=== PATIENT | male | born 1955 | race Caucasian/White ===

== ENCOUNTER 2024-03-25 08:19 | Emergency (ER) | payer MEDICARE, OTHER, SELFPAY ==
[2024-03-25] VITALS (10 sets, daily range): BP systolic 157–203; BP diastolic 79–112; PULSE 51–67; RESP 18; O2SAT 94–97; BMI 34.7
--- NOTE | 2024-03-25 08:32 | DI.RAD.S_ITS ---
PROCEDURE: XR CHEST 1V INDICATIONS: chest pain TECHNIQUE: One view of the chest was acquired. COMPARISON: None. FINDINGS: Surgical changes and devices: None. Lungs and pleura: Mild pulmonary vascular congestion is seen. No focal infiltrate. No pleural effusions or pneumothorax. Mediastinum: Mediastinal contours appear normal. Heart size is enlarged. Bones and chest wall: No suspicious bony lesions. Overlying soft tissues appear unremarkable. IMPRESSION: Cardiomegaly and mild congestion. No focal infiltrate, pleural effusion or pneumothorax. Dictated by: Titus Palacio M.D. on 03/25/2024 at 9:21 Approved by: Titus Palacio M.D. on 03/25/2024 at 9:22
--- NOTE | 2024-03-25 08:34 | EKG_ITS ---
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
[2024-03-25] MEDS: ASPIRIN 81 MG CHEW TAB 324 MG PO (08:42)
[2024-03-25 08:45] LABS: Add Manual Diff / Slide Review NO; Basophils Absolute Auto 0 /uL (0-100); Basophils Percent Auto 0.8 % (0-2); Eosinophils Absolute Auto 100 /uL (0-450); Eosinophils Percent Auto 2.2 % (2-4); Lymphocytes Absolute Auto 2600 /uL (1100-4500); Lymphocytes Percent Auto 45.6 % (25-40); Mean Corpuscular HGB Conc 33.9 % (30-36); Mean Corpuscular Hemoglobin 32.3 PG (26-34); Mean Corpuscular Volume 95.4 fL (80-100); Monocytes Absolute Auto 700 /uL (0-900); Monocytes Percent Auto 12.7 % (3-14); Neutrophils Absolute Auto 2200 /uL (1500-7000); Neutrophils Percent Auto 38.7 % (50-75); Platelet Count 156 X10^3/uL (150-400); Red Blood Cell Count 4.93 X10^6/uL (4.5-5.9); Red Cell Distribution Width 13.5 % (11.6-14.8); White Blood Cell Count 5.7 X10^3/uL (4.5-11.0)
[2024-03-25 09:21] LABS: Prothrombin Time 10.9 SECONDS (9.4-12.5)
[2024-03-25 09:24] LABS: PTT Partial Thromboplastin Tim 34 SECONDS (25.1-36.5)
--- NOTE | 2024-03-25 09:31 | ED_ITS ---
HPI - Chest Pain General Chief Complaint: Chest Pain Stated Complaint: CHEST PAIN ABD pain, Time Seen by Provider: 03/25/24 09:31 Source: patient Mode of arrival: Family Vehicle Limitations: no limitations History of Present Illness HPI narrative: Patient is a 68-year-old male not taking any medications has been on and off losartan presenting today with chest pain. He reports he was out fishing for about 3 hours 4 days ago when he got done in the car ride he had some chest heaviness on the left side really nonradiating no significant shortness of breath. He got out walked around went away. He was fine for the next 2 days and then this morning woke up again with some chest heaviness. No significant shortness of breath he does have a mild headache. He feels just really fatigued over the last couple of days to fever or chills. No abdominal pain nausea or vomiting. No other symptoms no known history of coronary artery disease no family history and he has a nonsmoker he says that he was on losartan in the beginning of the ear but was having some side effects he cut back to half ultimately he says he did not eat it in his blood pressure normalized so he has not taking. He denies any dizziness weakness numbness or tingling. Related Data Allergies Allergy/AdvReac Type Severity Reaction Status Date / Time No Known Drug Allergies Allergy Verified 03/25/24 08:35 Patient History Social History Smoking Status: Never smoker Smoking Status: Never smoker alcohol intake frequency: 0-2 drinks per day Substance Use Type: does not use Exam Initial Vital Signs Initial Vital Signs: Vital Signs Pulse Rate 67 03/25/24 08:32 Respiratory Rate 18 03/25/24 08:32 Blood Pressure 203/112 H 03/25/24 08:32 Pulse Oximetry 97 03/25/24 08:32 Oxygen Delivery Method Room Air 03/25/24 08:32 GENERAL: Alert pleasant and in no acute distress. HEENT: Head atraumatic,EOMI, pupils reactive, face symmetric, moist mucous membranes CARDIOVASCULAR: Regular rate and rhythm without murmurs, rubs or gallops. RESPIRATORY: Breath sounds equal bilaterally, no wheezes rales or rhonchi. ABDOMEN: Soft, nontender. Normoactive bowel sounds all 4 quadrants. No guarding or rebound. EXTREMITIES: Normal range of motion, no clubbing or edema. Neurovascularly intact NEUROLOGICAL: Alert and oriented x4.Normal gait and speech SKIN: Warm, dry, no laceration, no petechiae, no rashes or lesions. Scores HEART Score Heart Score history: Slightly Suspicious Heart Score EKG: Normal Heart Score Age: > or = 65 years old Heart Score risk factors: 1-2 risk factors Heart Score troponin: < or = to normal limit Heart Score Total: 3 Course Orders Ordered: ED Orders 03/25/24 11:05 Trop I [Troponin I] Stat EKG-12 Lead Stat Discontinued Medications Aspirin (Aspirin 81 Mg Chew Tab) 324 mg PO NOW ONE Stop: 03/25/24 08:33 Last Admin: 03/25/24 08:42 Dose: 324 mg Documented By: Sodium Chloride (Normal Saline 0.9%) 1,000 mls @ 1,000 mls/hr IV BOLUS ONE Stop: 03/25/24 10:43 Last Infusion: 03/25/24 10:54 Dose: Infused Documented By: Admin: 03/25/24 09:51 Dose: 1,000 mls/hr Documented By: Vital Signs Vital signs: Vital Signs - 8 hr 03/25/24 10:30 03/25/24 10:30 03/25/24 11:00 Pulse Rate 52 L Blood Pressure 157/79 H 170/87 H Pulse Oximetry 94 03/25/24 11:00 03/25/24 11:30 03/25/24 11:32 Pulse Rate 51 L 52 L Blood Pressure 178/85 H Pulse Oximetry 95 97 03/25/24 11:32 Pulse Rate 53 L Blood Pressure Pulse Oximetry 96 MDM - Chest Pain Lab Data 03/25/24 08:34 03/25/24 09:05 Labs: Lab Results 03/25/24 03/25/24 03/25/24 Range/Units 08:34 09:05 11:05 WBC 5.7 (4.5-11.0) X10^3/uL RBC 4.93 (4.5-5.9) X10^6/uL Hgb 16.0 (13.5-17.5) g/dL Hct 47.0 (41-53) % MCV 95.4 (80-100) fL MCH 32.3 (26-34) PG MCHC 33.9 (30-36) % RDW 13.5 (11.6-14.8) % Plt Count 156 (150-400) X10^3/uL Neut % (Auto) 38.7 L (50-75) % Lymph % (Auto) 45.6 H (25-40) % [place] % (Auto) 12.7 (3-14) % Eos % (Auto) 2.2 (2-4) % Baso % (Auto) 0.8 (0-2) % Neut # (Auto) 2200 (5472-6836) /uL Lymph # (Auto) 2600 (4261-7902) /uL [place] # (Auto) 700 (0-900) /uL Eos # (Auto) 100 (0-450) /uL Baso # (Auto) 0 (0-100) /uL PT 10.9 (9.4-12.5) SECONDS INR 1.0 (0.9-1.3) APTT 34 (25.1-36.5) SECONDS D-Dimer 226 (<500) ng/ml Sodium 140 (137-145) mmol/L Potassium 3.4 (3.4-5.1) mmol/L Chloride 108 H (98-107) mmol/L Carbon Dioxide 25 (22-32) mmol/L BUN 17 (9-20) mg/dL Creatinine 0.81 (0.66-1.25) mg/dL Estimated GFR > 60 (>60) mL/min BUN/Creatinine Ratio 21.0 (6-22) Glucose 140 H (80-110) mg/dL Calcium 8.3 L (8.4-10.2) mg/dL Magnesium 2.2 (1.6-2.3) mg/dL Total Bilirubin 0.8 (0.2-1.3) mg/dL AST 35 (17-59) IU/L ALT 56 H (<50) IU/L Alkaline Phosphatase 75 (38-126) U/L Total Creatine Kinase 85 (55-170) U/L Troponin I < 0.012 < 0.012 (0.01-0.034) ng/mL NT-Pro-B Natriuret Pep 45 (<125) pg/mL Total Protein 6.6 (6.3-8.2) g/dL Albumin 3.9 (3.5-5.0) g/dL Globulin 2.7 (1.7-4.1) g/dL Albumin/Globulin Ratio 1.4 (1.0-2.8) Lipase 83 (23-300) U/L Imaging Data Chest x-ray: Radiologist's Impression: PROCEDURE: XR CHEST 1V INDICATIONS: chest pain TECHNIQUE: One view of the chest was acquired. COMPARISON: None. FINDINGS: Surgical changes and devices: None. Lungs and pleura: Mild pulmonary vascular congestion is seen. No focal infiltrate. No pleural effusions or pneumothorax. Mediastinum: Mediastinal contours appear normal. Heart size is enlarged. Bones and chest wall: No suspicious bony lesions. Overlying soft tissues appear unremarkable. IMPRESSION: Cardiomegaly and mild congestion. No focal infiltrate, pleural effusion or pneumothorax. Dictated by: Titus Palacio M.D. on 03/25/2024 at 9:21 ECG Data Attestation: I personally reviewed and interpreted this ECG as follows: Interpretation: Normal sinus rhythm rate 61 [place] interval 160 QRS 144 QTC 430 right bundle-branch block noted no previous EKGs he have some T-wave inversion in V5 and V6 without ST elevation EKG 2. Sinus rhythm pre 53 [place] interval 182 QRS 146 QTC 429 persistent right bundle branch he does have persistent ST changes nothing new MDM Narrative Medical decision making narrative: Patient is a 68-year-old male history of hypertension not currently taking medications presenting today with chest discomfort off and on for the last 4 days. Started after he was out on a boat in the hot weather fishing he then did not have any sort of pain for 2 days and then it started again today. It actually seems to get better with movement does not really change with rest. He remains chest pain-free in the emergency department. He has a heart score of 3. [place] is currently [place] from [place] but will be here until May Blood work has been reviewed WBC 5.7 hemoglobin 16.0 hematocrit 47.0 platelet 156, D-dimer is 226, sodium 140 potassium 3.4 chloride 108 carbon dioxide 25 BUN 17 creatinine troponin negative x2, bilirubin 0.8 AST 35 ALT 56 lipase 83 Chest x-ray reviewed mild cardiomegaly with mild congestion without infiltrate EKGs reviewed right bundle-branch block there is some T-wave inversion in V5 and V6 patient is unaware of any sort of right bundle-branch block Long discussion with patient about requiring further workup including stress test and echocardiogram. D-dimer negative low suspicion for pulmonary embolism. Patient and both understand need for further workup can be done as an outpatient they both understand that you must return to the ED if having worsening symptoms Differential diagnosis acute coronary syndrome, pulmonary embolism, arrhythmia, pneumonia Discharge Plan Departure Patient Disposition: Home Clinical Impression: Atypical chest pain Instructions: DI for Atypical Chest Pain Activity Restrictions/Additional Instructions: *You have been diagnosed with atypical chest pain *What to do: At this time I do recommend that he follow up with primary care provider in regards to further cardiac testing such as stress test echocardiogram. While you are here you may need to establish care with a PCP *Continue to take medications as directed *Follow up with your primary care provider in 2-3 days or call [phone] *Return to ER if you should have increasing chest pain shortness of breath or any new, worsening or concerning symptoms Stand Alone Forms: Patient Portal/API
[2024-03-25 09:38] LABS: Alanine Aminotransferase 56 IU/L (<50); Albumin 3.9 g/dL (3.5-5.0); Albumin Globulin Ratio 1.4 (1.0-2.8); Alkaline Phosphatase 75 U/L (38-126); Aspartate Aminotransferase 35 IU/L (17-59); Bilirubin Total 0.8 mg/dL (0.2-1.3); Blood Urea Nitrogen 17 mg/dL (9-20); Calcium 8.3 mg/dL (8.4-10.2); Carbon Dioxide 25 mmol/L (22-32); Chloride 108 mmol/L (98-107); Creatine Kinase 85 U/L (55-170); Estimated Glomerular Filt Rate > 60 mL/min (>60); Globulin 2.7 g/dL (1.7-4.1); Glucose 140 mg/dL (80-110); HEMOLYSIS < 15 (0-50); Lipase 83 U/L (23-300); Magnesium 2.2 mg/dL (1.6-2.3); Potassium 3.4 mmol/L (3.4-5.1); Sodium 140 mmol/L (137-145); Total Protein 6.6 g/dL (6.3-8.2)
[2024-03-25 09:49] LABS: NT-proBNP (BNP-Adult 18+) 45 pg/mL (<125); Troponin I < 0.012 ng/mL (0.01-0.034)
[2024-03-25] MEDS: SODIUM CHLORIDE 0.9% 1,000 ML 1000 ML IV (09:51)
[2024-03-25 09:58] LABS: D Dimer 226 ng/ml (<500)
--- NOTE | 2024-03-25 11:10 | EKG_ITS ---
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
[2024-03-25 11:36] LABS: Troponin I < 0.012 ng/mL (0.01-0.034)
== END 2024-03-25 11:48 | disposition home or self-care (01) ==
PROVIDERS: Emergency Provider Emergency Medicine
DX: R07.89 Other chest pain (principal); I45.10 Unspecified right bundle-branch block; Z86.79 Personal history of other diseases of the circulatory system
CPT/HCPCS: 36415; 71045; 80053; 82550; 83690; 83735; 83880; 84484; 85025; 85379; 85610; 85730; 93005; 96360; 99284